=== PATIENT | female | born 1955 | race Caucasian/White ===

== ENCOUNTER → 2017-08-27 | Outpatient (CLI) | payer OTHER ==
--- NOTE | 2017-08-27 14:43 | Diagnostic Imaging Report ---
EXAM: CT Chest WITHOUT contrast INDICATION: \[id number] \S\[id number] \S\SMOKER/LUNG NODULES /ADENOCARCINOMA COMPARISON: CT dated 08/22/2016 TECHNIQUE: Chest was scanned utilizing a multidetector helical scanner from the lung apex through the level of the adrenal glands without administration of IV contrast. Absence of intravenous contrast decreases sensitivity for detection of lymphadenopathy and vascular pathology. Coronal and sagittal reformations were obtained. Routine protocol was performed. IV CONTRAST: None COMPLICATIONS: None RADIATION DOSE: Total DLP: 539.44 mGy*cm Estimated effective dose: (DLP x 0.014 x size factor) mSv CTDIvol has been reviewed. It is below the limits set by the Radiation Protocol Committee (RPC). FINDINGS: LINES/ TUBES: None. LUNGS AND AIRWAYS: Biapical scarring. Bilateral predominantly upper lobe centrilobular emphysematous changes. There is a 0.8 x 0.6 cm noncalcified nodule in the left upper lobe (series 3, image 33), previously 0.7 x 0.6 cm. Unchanged 1.2 cm spiculated lesion in the posterior right upper lobe (series 3, image 41). 0.4 cm lymph node along the right minor fissure (series 3, image 3). Unchanged spiculated density seen right upper lobe (series 3, image 68). There is also unchanged spiculated density in left lower lobe (series 3, image 70). Unchanged punctate nodules such as in series 3, images 38 and 55. Airways are normal. PLEURA: The pleural spaces are clear.New left upper lobe pleural irregularities (series 3, images 67-77), may represent subsegmental atelectasis. HEART AND MEDIASTINUM: The thyroid gland is normal. No mediastinal, hilar or axillary lymphadenopathy. Unchanged 0.9 cm right paratracheal lymph node (series 2, image 51). The heart is normal in size.. There is no pericardial effusion. Ascending thoracic aorta is ectatic, measuring 4 cm at level of the right pulmonary artery. Main pulmonary artery measures 3.3 cm, suggestive of pulmonary hypertension. UPPER ABDOMEN: Unremarkable. BONES: Unremarkable. Previously noted T11 vertebral body lucency is not well visualized on today's exam. SOFT TISSUES: Unremarkable. IMPRESSION: 1. Stable study when compared to CT dated 08/22/2016. 2. Not significantly changed pulmonary nodules, the largest measuring 0.8 cm in left upper lobe. There are also stable scattered spiculated densities as described above. 3. Mild pleural irregularity of the lateral left upper lobe, could represent subsegmental atelectasis. Recommend attention on follow-up examination in 6 months. Signed by: Dr. Dax Paul MD on 08/27/2017 2:39 PM
== END ==
LOC: CT 12:42
PROVIDERS: ATTEND Internal Medicine Cardiovascular Disease
DX: C34.90 Malignant neoplasm of unspecified part of unspecified bronchus or lung (principal); J98.4 Other disorders of lung; J44.9 Chronic obstructive pulmonary disease, unspecified; D49.0 Neoplasm of unspecified behavior of digestive system; F17.200 Nicotine dependence, unspecified, uncomplicated
CPT/HCPCS: 71250

== ENCOUNTER → 2019-11-29 | Outpatient (CLI) | payer MEDICARE, OTHER | LOC: RESP 09:36 | PROVIDERS: ATTEND Internal Medicine Critical Care Medicine | DX: C34.90 Malignant neoplasm of unspecified part of unspecified bronchus or lung (principal); J44.9 Chronic obstructive pulmonary disease, unspecified; J98.4 Other disorders of lung; D49.0 Neoplasm of unspecified behavior of digestive system; Z92.3 Personal history of irradiation; F17.200 Nicotine dependence, unspecified, uncomplicated | CPT/HCPCS: 94060; 94664; 94727; 94729 ==